=== PATIENT | male | born 1955 | race Caucasian/White ===

== ENCOUNTER 2020-10-25 08:16 | Inpatient (IN) ==
[2020-10-25] MEDS ORDERED: Lidocaine -MPF 4% 5 ML AMPUL ONE (08:32)
[2020-10-25] MEDS ORDERED: CeFAZolin Syr 2,000MG/20 ML 2,000 MG/20 ML SYRINGE IVPB ONE (08:32)
[2020-10-25] MEDS ORDERED: *HR* Propofol 200 MG/20 ML VIAL IVP ONE (08:40)
[2020-10-25] MEDS ORDERED: *HR* Midazolam HCl 2 MG/2 ML VIAL ONE (08:40)
[2020-10-25] MEDS ORDERED: *HR* FentaNYL (PF) 100 MCG/2 ML VIAL ONE (08:40)
[2020-10-25] MEDS ORDERED: *HR* Magnesium Sulfate 1 GM/2 ML VIAL ONE (08:41)
[2020-10-25] MEDS ORDERED: Lidocaine -MPF 2% 2 ML VIAL ONE (08:42)
[2020-10-25] MEDS ORDERED: Ondansetron 4 MG/2 ML VIAL ONE (08:42)
[2020-10-25] MEDS ORDERED: *HR* Rocuronium Bromide 50 MG/5 ML VIAL ONE ×3 (08:42→13:10)
[2020-10-25] MEDS ORDERED: Ringers Solution, Lactated 1,000 ML IVC SCH ×2 (08:45→09:00)
[2020-10-25] MEDS ORDERED: *HR* OxyCODONE Immed Rel 5 MG TABLET PO PRN (08:56)
[2020-10-25] MEDS ORDERED: Ondansetron 4 MG/2 ML VIAL IVP PRN ×2 (08:56→14:24)
[2020-10-25] MEDS ORDERED: *HR* FentaNYL (PF) 100 MCG/2 ML VIAL IVP PRN (08:56)
[2020-10-25] MEDS ORDERED: Acetaminophen IV 1,000 MG/100 ML BAG IVPB ONE ×2 (09:05→10:37)
[2020-10-25] MEDS ORDERED: *HR* HYDROMORPHONE 2 MG/ML VIAL ONE (11:13)
[2020-10-25] MEDS ORDERED: D5% in Water 1,000 ML IVC PRN (14:24)
[2020-10-25] MEDS ORDERED: *HR* Dextrose 50 % in Water (Vial) 50 ML VIAL IVP PRN (14:24)
[2020-10-25] MEDS ORDERED: Dextrose Gel 15 GM/37.5 ML TUBE PO PRN ×2 (14:24)
[2020-10-25] MEDS: *HR* HYDROcodone/Acet 5/325 mg TABLET PO PRN (14:58)
[2020-10-25] MEDS: Gabapentin 300 MG CAPSULE PO SCH ×2 (14:58→21:36)
[2020-10-25] MEDS: *HR* Heparin 5,000 UNIT/ML VIAL SQ SCH ×2 (14:59→21:36)
[2020-10-25] MEDS: 0.9 % Sodium Chloride 1,000 ML IVC SCH (14:59)
[2020-10-25] MEDS: Ipratropium/Albuterol Neb 3 ML IH SCH ×3 (15:45→23:25)
[2020-10-25] MEDS: *HR* Metformin 500 MG TABLET PO SCH (16:57)
[2020-10-25] MEDS: Ketorolac 15 MG/ML VIAL IVP SCH (16:57)
[2020-10-25] MEDS: Insulin LISPRO 300 UNITS/3 ML VIAL SUBQ SCH ×2 (17:00→19:52)
[2020-10-25] MEDS: Famotidine 20 MG TABLET PO SCH (21:36)
[2020-10-25] MEDS: Sennosides/Docusate Sodium TABLET PO SCH (21:36)
[2020-10-26] MEDS: Ketorolac 15 MG/ML VIAL IVP SCH ×5 (00:15→23:22)
[2020-10-26] MEDS: Ipratropium/Albuterol Neb 3 ML IH SCH ×6 (03:45→23:15)
[2020-10-26] MEDS: 0.9 % Sodium Chloride 1,000 ML IVC SCH (04:00)
[2020-10-26] MEDS: *HR* Heparin 5,000 UNIT/ML VIAL SQ SCH ×3 (05:53→20:13)
[2020-10-26 06:06] LABS: Hematocrit 37.5 % (37.5-50.1); Hemoglobin 12.5 g/dL (12.9-16.9); Mean Corpuscular HGB Conc 33.3 g/dL (31.6-35.5); Mean Corpuscular Hemoglobin 28.9 pg (28.0-33.3); Mean Corpuscular Volume 86.8 fL (83.0-100.0); Mean Platelet Volume 9.4 fL (9.4-12.4); Platelet Count 210 K/mcL (140-400); Red Blood Count 4.32 M/mcL (4.19-5.50); Red Cell Distribution Width 13.5 % (11.5-14.5); White Blood Count 11.8 K/mcL (4.3-11.1)
[2020-10-26 06:51] LABS: % Iron Saturation 11 % (20-55); BUN/Creatinine Ratio 18 (6-26); Blood Urea Nitrogen 19 mg/dL (8-23); Calcium 8.3 mg/dL (8.6-10.3); Carbon Dioxide 21 mEq/L (23-29); Chloride 105 mEq/L (98-107); Glucose 138 mg/dL (70-105); Iron 33 mcg/dL (65-175); Magnesium 2.4 mg/dL (1.6-2.6); Osmolality,Calculated 282 (280-300); Potassium 4.3 mEq/L (3.5-5.1); Sodium 134 mEq/L (136-145); Transferrin 217 mg/dL (203-362); eGFR For African Americans > 60 (> 60); eGFR For Non-African Americans > 60 (> 60)
[2020-10-26] MEDS: Insulin LISPRO 300 UNITS/3 ML VIAL SUBQ SCH ×4 (07:27→20:04)
[2020-10-26] MEDS: Sennosides/Docusate Sodium TABLET PO SCH ×2 (07:46→20:12)
[2020-10-26] MEDS: hydroCHLOROthiazide 25 MG TABLET PO SCH (07:46)
[2020-10-26] MEDS: lisinopriL 10 MG TABLET PO SCH (07:46)
[2020-10-26] MEDS: Gabapentin 300 MG CAPSULE PO SCH ×3 (07:46→20:12)
[2020-10-26] MEDS: DilTIAZem CD (24hr) 120 MG CAP.ER.24H PO SCH (07:46)
[2020-10-26] MEDS: Aspirin Enteric Coated 81 MG Tablet PO SCH (07:47)
[2020-10-26] MEDS: Famotidine 20 MG TABLET PO SCH ×2 (07:47→20:12)
[2020-10-26] MEDS: *HR* HYDROcodone/Acet 5/325 mg TABLET PO PRN (10:18)
[2020-10-26] MEDS: *HR* Metformin 500 MG TABLET PO SCH (17:45)
[2020-10-27] MEDS: Ipratropium/Albuterol Neb 3 ML IH SCH ×5 (03:24→20:03)
[2020-10-27] MEDS: *HR* Heparin 5,000 UNIT/ML VIAL SQ SCH ×3 (06:21→21:05)
[2020-10-27] MEDS: Ketorolac 15 MG/ML VIAL IVP SCH ×3 (06:21→17:22)
[2020-10-27] MEDS: Insulin LISPRO 300 UNITS/3 ML VIAL SUBQ SCH ×4 (07:15→20:46)
[2020-10-27] MEDS: Sennosides/Docusate Sodium TABLET PO SCH ×2 (08:33→21:05)
[2020-10-27] MEDS: Famotidine 20 MG TABLET PO SCH ×2 (08:33→21:05)
[2020-10-27] MEDS: DilTIAZem CD (24hr) 120 MG CAP.ER.24H PO SCH (08:33)
[2020-10-27] MEDS: Aspirin Enteric Coated 81 MG Tablet PO SCH (08:33)
[2020-10-27] MEDS: Gabapentin 300 MG CAPSULE PO SCH ×3 (08:34→21:06)
[2020-10-27] MEDS: hydroCHLOROthiazide 25 MG TABLET PO SCH (08:34)
[2020-10-27] MEDS: lisinopriL 10 MG TABLET PO SCH (08:34)
[2020-10-27] MEDS: *HR* Metformin 500 MG TABLET PO SCH (17:22)
[2020-10-28] MEDS: Ipratropium/Albuterol Neb 3 ML IH SCH ×7 (00:01→23:20)
[2020-10-28] MEDS: Ketorolac 15 MG/ML VIAL IVP SCH ×5 (00:28→23:57)
[2020-10-28 01:55] LABS: Hematocrit 30.9 % (37.5-50.1); Mean Corpuscular HGB Conc 33.3 g/dL (31.6-35.5); Mean Corpuscular Hemoglobin 29.2 pg (28.0-33.3); Mean Corpuscular Volume 87.5 fL (83.0-100.0); Mean Platelet Volume 9.6 fL (9.4-12.4); Platelet Count 175 K/mcL (140-400); Red Blood Count 3.53 M/mcL (4.19-5.50); Red Cell Distribution Width 13.9 % (11.5-14.5); White Blood Count 9.4 K/mcL (4.3-11.1)
[2020-10-28 01:58] LABS: Hemoglobin 10.3 g/dL (12.9-16.9)
[2020-10-28 02:06] LABS: BUN/Creatinine Ratio 17 (6-26); Blood Urea Nitrogen 18 mg/dL (8-23); Calcium 8.6 mg/dL (8.6-10.3); Carbon Dioxide 29 mEq/L (23-29); Chloride 104 mEq/L (98-107); Glucose 147 mg/dL (70-105); Magnesium 2.9 mg/dL (1.6-2.6); Osmolality,Calculated 289 (280-300); Potassium 4.1 mEq/L (3.5-5.1); Sodium 137 mEq/L (136-145); eGFR For African Americans > 60 (> 60); eGFR For Non-African Americans > 60 (> 60)
[2020-10-28] MEDS: *HR* Heparin 5,000 UNIT/ML VIAL SQ SCH ×3 (04:56→20:21)
[2020-10-28] MEDS: Insulin LISPRO 300 UNITS/3 ML VIAL SUBQ SCH ×4 (08:28→20:07)
[2020-10-28] MEDS: Famotidine 20 MG TABLET PO SCH ×2 (08:44→20:20)
[2020-10-28] MEDS: Aspirin Enteric Coated 81 MG Tablet PO SCH (08:44)
[2020-10-28] MEDS: hydroCHLOROthiazide 25 MG TABLET PO SCH (08:44)
[2020-10-28] MEDS: lisinopriL 10 MG TABLET PO SCH (08:44)
[2020-10-28] MEDS: Gabapentin 300 MG CAPSULE PO SCH ×3 (08:45→20:21)
[2020-10-28] MEDS: DilTIAZem CD (24hr) 120 MG CAP.ER.24H PO SCH (08:45)
[2020-10-28] MEDS: Sennosides/Docusate Sodium TABLET PO SCH ×2 (08:45→20:21)
[2020-10-28] MEDS: *HR* HYDROcodone/Acet 5/325 mg TABLET PO PRN (10:57)
[2020-10-28] MEDS: *HR* Metformin 500 MG TABLET PO SCH (17:15)
[2020-10-29] MEDS: Ipratropium/Albuterol Neb 3 ML IH SCH ×2 (04:07→07:16)
[2020-10-29] MEDS: *HR* Heparin 5,000 UNIT/ML VIAL SQ SCH (05:37)
[2020-10-29] MEDS: Ketorolac 15 MG/ML VIAL IVP SCH (05:38)
[2020-10-29 07:42] VITALS: BP 132/70
[2020-10-29] MEDS: DilTIAZem CD (24hr) 120 MG CAP.ER.24H PO SCH (08:58)
[2020-10-29] MEDS: hydroCHLOROthiazide 25 MG TABLET PO SCH (08:58)
[2020-10-29] MEDS: Aspirin Enteric Coated 81 MG Tablet PO SCH (08:58)
[2020-10-29] MEDS: Famotidine 20 MG TABLET PO SCH (08:58)
[2020-10-29] MEDS: Insulin LISPRO 300 UNITS/3 ML VIAL SUBQ SCH (08:59)
[2020-10-29] MEDS: Gabapentin 300 MG CAPSULE PO SCH (08:59)
[2020-10-29] MEDS: lisinopriL 10 MG TABLET PO SCH (08:59)
[2020-10-29] MEDS: Sennosides/Docusate Sodium TABLET PO SCH (08:59)
== END 2020-10-29 09:34 | disposition home or self-care (01) | DRG 164 ==
LOC: SAMDAY 08:16 → 2NNU 14:17 → SAMDAY 10-29 09:34 → 2NNU 11-01 09:54
PROVIDERS: ADMIT Thoracic Surgery (Cardiothoracic Vascular Surgery); ATTEND Thoracic Surgery (Cardiothoracic Vascular Surgery)

== ENCOUNTER 2020-11-01 20:22 | Inpatient (IN) ==
[2020-11-01] MEDS ORDERED: Isovue-370 500 ML BOTTLE IVP ONE (22:01)
[2020-11-01 22:14] LABS: Basophils # 0.1 K/mcL (0.0-0.2); Basophils % 0.4 %; Eosinophils # 0.5 K/mcL (0.0-0.6); Eosinophils % 3.3 %; Hematocrit 37.8 % (37.5-50.1); Immature Granulocytes % 1.9 % (0-4); Lymphocytes # 2.1 K/mcL (0.6-4.6); Lymphocytes % 13.6 %; Mean Corpuscular Hemoglobin 28.6 pg (28.0-33.3); Mean Corpuscular Volume 89.4 fL (83.0-100.0); Mean Platelet Volume 9.7 fL (9.4-12.4); Monocytes # 1.5 K/mcL (0.0-1.3); Monocytes % 9.3 %; Platelet Count 319 K/mcL (140-400); Red Blood Count 4.23 M/mcL (4.19-5.50); Red Cell Distribution Width 14.2 % (11.5-14.5); Segmented Neutrophils % 71.5 %
[2020-11-01 22:15] LABS: Hemoglobin 12.1 g/dL (12.9-16.9); Neutrophils # 11.2 K/mcL (1.6-8.9); White Blood Count 15.6 K/mcL (4.3-11.1)
[2020-11-01 22:38] LABS: Alanine Aminotransferase 55 Units/L (7-52); Albumin/Globulin Ratio 1.3 (1.1-2.2); Alkaline Phosphatase 85 Units/L (34-104); Aspartate Amino Transferase 38 Units/L (13-39); BUN/Creatinine Ratio 22 (6-26); Bilirubin,Direct 0.1 mg/dL (0.0-0.2); Bilirubin,Indirect 0.5 mg/dL (0.0-1.0); Bilirubin,Total 0.6 mg/dL (0.3-1.0); Blood Urea Nitrogen 24 mg/dL (8-23); Calcium 9.3 mg/dL (8.6-10.3); Carbon Dioxide 26 mEq/L (23-29); Chloride 98 mEq/L (98-107); Globulin 3.2 g/dL (2.4-3.5); Glucose 116 mg/dL (70-105); Osmolality,Calculated 285 (280-300); Potassium 4.6 mEq/L (3.5-5.1); Sodium 135 mEq/L (136-145); Total Protein 7.2 g/dL (6.4-8.9); eGFR For African Americans > 60 (> 60); eGFR For Non-African Americans > 60 (> 60)
[2020-11-02] MEDS ORDERED: Vancomycin 1,500 MG/265 ML IV.SOLN IVPB ONE (01:00)
[2020-11-02] MEDS ORDERED: Piperacillin/Tazobactam 3.375 GM in 0.9 % Sodium Chloride Mini Bag 100 ML IVPB STA (01:01)
[2020-11-02] MEDS ORDERED: Piperacillin/Tazobactam 3.375 GM in 0.9 % Sodium Chloride Mini Bag 100 ML IVPB ONE (01:15)
[2020-11-02] MEDS ORDERED: *HR* HYDROcodone/Acet 5/325 mg TABLET PO ONE (01:58)
[2020-11-02] MEDS ORDERED: Naloxone 0.4 MG/ML INJ IVP PRN (04:32)
[2020-11-02] MEDS ORDERED: Ondansetron 4 MG/2 ML VIAL IVP PRN (04:32)
[2020-11-02] MEDS ORDERED: 0.9 % Sodium Chloride 1,000 ML IVC SCH (04:45)
[2020-11-02] MEDS ORDERED: *HR* Dextrose 50 % in Water (Vial) 50 ML VIAL IVP PRN (06:44)
[2020-11-02] MEDS ORDERED: D5% in Water 1,000 ML IVC PRN (06:44)
[2020-11-02] MEDS ORDERED: Dextrose Gel 15 GM/37.5 ML TUBE PO PRN ×2 (06:44)
[2020-11-02 07:53] LABS: Lipase 26 Units/L (11-82)
[2020-11-02] MEDS: Insulin LISPRO 300 UNITS/3 ML VIAL SUBQ SCH ×3 (08:00→17:07)
[2020-11-02] MEDS ORDERED: Piperacillin/Tazobactam 3.375 GM in 0.9 % Sodium Chloride Mini Bag 100 ML IVPB SCH (08:00)
[2020-11-02 08:13] LABS: Troponin I < 0.03 ng/mL (< 0.04)
[2020-11-02] MEDS: hydroCHLOROthiazide 25 MG TABLET PO SCH (10:43)
[2020-11-02] MEDS: Aspirin Enteric Coated 81 MG Tablet PO SCH (10:43)
[2020-11-02] MEDS: DilTIAZem CD (24hr) 120 MG CAP.ER.24H PO SCH (10:43)
[2020-11-02] MEDS: *HR* HYDROcodone/Acet 5/325 mg TABLET PO PRN ×2 (10:43→14:42)
[2020-11-02] MEDS: lisinopriL 10 MG TABLET PO SCH (10:43)
[2020-11-02] MEDS: Gabapentin 300 MG CAPSULE PO SCH ×3 (10:43→20:12)
[2020-11-02] MEDS: Ampicillin/Sulbactam 1,500 MG in 0.9 % Sodium Chloride Mini Bag 100 ML IVPB SCH ×3 (13:10→23:51)
[2020-11-02] MEDS: *HR* Metformin 500 MG TABLET PO SCH ×2 (13:11→17:02)
[2020-11-02] MEDS ORDERED: Vancomycin 1,500 MG/265 ML IV.SOLN IVPB SCH (14:00)
[2020-11-03 04:19] LABS: Basophils % 0.3 %; Eosinophils # 0.4 K/mcL (0.0-0.6); Eosinophils % 3.2 %; Hematocrit 36.7 % (37.5-50.1); Immature Granulocytes % 1.1 % (0-4); Lymphocytes # 1.7 K/mcL (0.6-4.6); Lymphocytes % 14.3 %; Mean Corpuscular HGB Conc 32.7 g/dL (31.6-35.5); Mean Corpuscular Hemoglobin 29.2 pg (28.0-33.3); Mean Corpuscular Volume 89.3 fL (83.0-100.0); Mean Platelet Volume 9.4 fL (9.4-12.4); Monocytes # 1.3 K/mcL (0.0-1.3); Monocytes % 10.9 %; Neutrophils # 8.5 K/mcL (1.6-8.9); Platelet Count 274 K/mcL (140-400); Red Blood Count 4.11 M/mcL (4.19-5.50); Red Cell Distribution Width 14.3 % (11.5-14.5); Segmented Neutrophils % 70.2 %; White Blood Count 12.1 K/mcL (4.3-11.1)
[2020-11-03 04:37] LABS: BUN/Creatinine Ratio 21 (6-26); Blood Urea Nitrogen 21 mg/dL (8-23); Calcium 9.3 mg/dL (8.6-10.3); Carbon Dioxide 27 mEq/L (23-29); Chloride 99 mEq/L (98-107); Glucose 118 mg/dL (70-105); Osmolality,Calculated 286 (280-300); Potassium 4.6 mEq/L (3.5-5.1); Sodium 136 mEq/L (136-145); eGFR For African Americans > 60 (> 60); eGFR For Non-African Americans > 60 (> 60)
[2020-11-03] MEDS: Ampicillin/Sulbactam 1,500 MG in 0.9 % Sodium Chloride Mini Bag 100 ML IVPB SCH ×4 (06:28→23:47)
[2020-11-03] MEDS: Insulin LISPRO 300 UNITS/3 ML VIAL SUBQ SCH ×3 (07:35→16:52)
[2020-11-03] MEDS: lisinopriL 10 MG TABLET PO SCH (07:40)
[2020-11-03] MEDS: DilTIAZem CD (24hr) 120 MG CAP.ER.24H PO SCH (07:40)
[2020-11-03] MEDS: Gabapentin 300 MG CAPSULE PO SCH ×3 (07:40→20:01)
[2020-11-03] MEDS: Aspirin Enteric Coated 81 MG Tablet PO SCH (07:40)
[2020-11-03] MEDS: hydroCHLOROthiazide 25 MG TABLET PO SCH (07:40)
[2020-11-03] MEDS: *HR* Metformin 500 MG TABLET PO SCH (17:10)
[2020-11-03] MEDS: *HR* HYDROcodone/Acet 5/325 mg TABLET PO PRN (20:06)
[2020-11-04] MEDS: Ampicillin/Sulbactam 1,500 MG in 0.9 % Sodium Chloride Mini Bag 100 ML IVPB SCH ×3 (06:15→17:52)
[2020-11-04] MEDS: DilTIAZem CD (24hr) 120 MG CAP.ER.24H PO SCH (08:45)
[2020-11-04] MEDS: lisinopriL 10 MG TABLET PO SCH (08:45)
[2020-11-04] MEDS: Gabapentin 300 MG CAPSULE PO SCH ×3 (08:45→20:38)
[2020-11-04] MEDS: Aspirin Enteric Coated 81 MG Tablet PO SCH (08:45)
[2020-11-04] MEDS: hydroCHLOROthiazide 25 MG TABLET PO SCH (08:45)
[2020-11-04] MEDS: Insulin LISPRO 300 UNITS/3 ML VIAL SUBQ SCH ×3 (08:53→16:43)
[2020-11-04] MEDS: Mag Hydrox/Al Hydrox/Simeth 30 ML UDC PO PRN (09:10)
[2020-11-04 11:47] VITALS: O2SAT 100
[2020-11-04] MEDS: *HR* Metformin 500 MG TABLET PO SCH (17:52)
[2020-11-04] MEDS: *HR* HYDROcodone/Acet 5/325 mg TABLET PO PRN (20:37)
[2020-11-05] MEDS: Ampicillin/Sulbactam 1,500 MG in 0.9 % Sodium Chloride Mini Bag 100 ML IVPB SCH ×2 (00:03→05:39)
[2020-11-05 03:43] VITALS: BP 135/77
[2020-11-05] MEDS: Mag Hydrox/Al Hydrox/Simeth 30 ML UDC PO PRN (05:39)
[2020-11-05 07:42] VITALS: PULSE 62; TEMP 98.2
[2020-11-05] MEDS: hydroCHLOROthiazide 25 MG TABLET PO SCH (09:21)
[2020-11-05] MEDS: Gabapentin 300 MG CAPSULE PO SCH (09:21)
[2020-11-05] MEDS: DilTIAZem CD (24hr) 120 MG CAP.ER.24H PO SCH (09:21)
[2020-11-05] MEDS: Aspirin Enteric Coated 81 MG Tablet PO SCH (09:22)
[2020-11-05] MEDS: lisinopriL 10 MG TABLET PO SCH (09:22)
[2020-11-05] MEDS: Insulin LISPRO 300 UNITS/3 ML VIAL SUBQ SCH (09:24)
== END 2020-11-05 11:44 | disposition home or self-care (01) | DRG 200 ==
LOC: 2NNU 20:22 → EMEROOARM 20:22 → SUATTDRO 11-02 02:42 → 2NNU 11-02 03:18 → SUATTDRO 11-02 10:00 → 2NNU 11-03 20:43
PROVIDERS: ADMIT Internal Medicine; ATTEND Thoracic Surgery (Cardiothoracic Vascular Surgery)

== ENCOUNTER 2020-11-17 10:16 | Observation (INO) ==
[2020-11-17] MEDS ORDERED: 0.9 % Sodium Chloride 1,000 ML IV ONE (11:09)
[2020-11-17] MEDS ORDERED: Ondansetron 4 MG/2 ML VIAL IVP ONE (11:09)
[2020-11-17] MEDS ORDERED: Morphine Sulfate 2 MG/ML SYRINGE IVP ONE (11:09)
[2020-11-17 11:38] LABS: Basophils # 0.1 K/mcL (0.0-0.2); Basophils % 0.4 %; Eosinophils # 0.3 K/mcL (0.0-0.6); Eosinophils % 2.6 %; Hematocrit 42.3 % (37.5-50.1); Hemoglobin 13.9 g/dL (12.9-16.9); Immature Granulocytes % 0.4 % (0-4); Lymphocytes # 1.2 K/mcL (0.6-4.6); Lymphocytes % 10.6 %; Mean Corpuscular HGB Conc 32.9 g/dL (31.6-35.5); Mean Corpuscular Hemoglobin 28.9 pg (28.0-33.3); Mean Corpuscular Volume 87.9 fL (83.0-100.0); Monocytes % 8.4 %; Neutrophils # 9.1 K/mcL (1.6-8.9); Platelet Count 299 K/mcL (140-400); Red Blood Count 4.81 M/mcL (4.19-5.50); Red Cell Distribution Width 13.8 % (11.5-14.5); Segmented Neutrophils % 77.6 %; White Blood Count 11.7 K/mcL (4.3-11.1)
[2020-11-17 11:47] LABS: Alanine Aminotransferase 24 Units/L (7-52); Albumin 4.6 g/dL (3.5-5.7); Albumin/Globulin Ratio 1.4 (1.1-2.2); Alkaline Phosphatase 109 Units/L (34-104); Aspartate Amino Transferase 22 Units/L (13-39); BUN/Creatinine Ratio 16 (6-26); Bilirubin,Total 0.8 mg/dL (0.3-1.0); Blood Urea Nitrogen 18 mg/dL (8-23); Calcium 9.6 mg/dL (8.6-10.3); Carbon Dioxide 26 mEq/L (23-29); Chloride 100 mEq/L (98-107); Creatine Kinase 116 Units/L (30-223); Globulin 3.3 g/dL (2.4-3.5); Glucose 115 mg/dL (70-105); Lipase 29 Units/L (11-82); Magnesium 2.8 mg/dL (1.6-2.6); Osmolality,Calculated 283 (280-300); Potassium 3.9 mEq/L (3.5-5.1); Sodium 135 mEq/L (136-145); Total Protein 7.9 g/dL (6.4-8.9); eGFR For African Americans > 60 (> 60); eGFR For Non-African Americans > 60 (> 60)
[2020-11-17 11:48] LABS: Troponin I < 0.03 ng/mL (< 0.04)
[2020-11-17 12:01] LABS: Thyroid Stimulating Hormone 22.318 mcIU/mL (0.340-5.600)
[2020-11-17 12:27] LABS: Adenovirus Not Detected (Not Detect); Bordetella Pertussis Not Detected (Not Detect); Chlamydophila pneumoniae Not Detected (Not Detect); Coronavirus 229E Not Detected (Not Detect); Coronavirus HKU1 Not Detected (Not Detect); Coronavirus NL63 Not Detected (Not Detect); Coronavirus OC43 Not Detected (Not Detect); Human Metapneumovirus Not Detected (Not Detect); Human Rhinovirus/Enterovirus Not Detected (Not Detect); Influenza A Subtype 2009 H1 Not Detected (Not Detect); Influenza B Not Detected (Not Detect); Mycoplasma pneumoniae Not Detected (Not Detect); Parainfluenza Virus 1 Not Detected (Not Detect); Parainfluenza Virus 2 Not Detected (Not Detect); Parainfluenza Virus 3 Not Detected (Not Detect); Parainfluenza Virus 4 Not Detected (Not Detect); Respiratory Syncytial Virus Not Detected (Not Detect); SARS-CoV-2 Not Detected (Not Detect)
[2020-11-17 13:33] LABS: Bilirubin,Urine Negative (Negative); Blood,Urine Negative (Negative); Clarity,Urine Clear (Clear); Color,Urine Light-Yellow (Yellow); Glucose,Urine (UA) Normal (Normal); Ketones,Urine 10 mg/dL (Negative); Leukocyte Esterase,Urine Negative (Negative); Nitrite,Urine Negative (Negative); Protein,Urine Negative (Neg-Trace); Specific Gravity,Urine 1.027 (1.010-1.025); Urobilinogen,Urine Normal (Normal)
[2020-11-17] MEDS ORDERED: Cefepime HCl 1,000 MG in Water for inj. (sterile) 10 ML IVP ONE (15:32)
[2020-11-17] MEDS ORDERED: Vancomycin 1,500 MG/265 ML IV.SOLN IVPB ONE (15:33)
[2020-11-17] MEDS ORDERED: Isovue-370 500 ML BOTTLE IVP ONE (15:58)
[2020-11-17] MEDS ORDERED: Naloxone 0.4 MG/ML INJ IVP PRN (16:49)
[2020-11-17] MEDS ORDERED: Dextrose Gel 15 GM/37.5 ML TUBE PO PRN ×2 (16:59)
[2020-11-17] MEDS ORDERED: *HR* Dextrose 50 % in Water (Vial) 50 ML VIAL IVP PRN (16:59)
[2020-11-17] MEDS ORDERED: D5% in Water 1,000 ML IVC PRN (16:59)
[2020-11-17 17:49] LABS: Triiodothyronine (T3) Free 2.59 pg/mL (2.50-3.90)
[2020-11-17] MEDS: predniSONE 20 MG TABLET PO SCH (18:46)
[2020-11-17] MEDS: Sennosides/Docusate Sodium TABLET PO SCH (20:59)
[2020-11-17] MEDS: Gabapentin 300 MG CAPSULE PO SCH (20:59)
[2020-11-18 01:51] LABS: Basophils % 0.2 %; Eosinophils % 0.2 %; Hematocrit 39.5 % (37.5-50.1); Hemoglobin 13.4 g/dL (12.9-16.9); Immature Granulocytes % 0.4 % (0-4); Lymphocytes # 0.8 K/mcL (0.6-4.6); Lymphocytes % 8.2 %; Mean Corpuscular HGB Conc 33.9 g/dL (31.6-35.5); Mean Corpuscular Hemoglobin 29.6 pg (28.0-33.3); Mean Corpuscular Volume 87.4 fL (83.0-100.0); Mean Platelet Volume 9.1 fL (9.4-12.4); Monocytes # 0.3 K/mcL (0.0-1.3); Monocytes % 2.5 %; Neutrophils # 8.9 K/mcL (1.6-8.9); Platelet Count 259 K/mcL (140-400); Red Blood Count 4.52 M/mcL (4.19-5.50); Red Cell Distribution Width 13.5 % (11.5-14.5); Segmented Neutrophils % 88.5 %
[2020-11-18 02:09] LABS: BUN/Creatinine Ratio 17 (6-26); Blood Urea Nitrogen 17 mg/dL (8-23); Calcium 9.4 mg/dL (8.6-10.3); Carbon Dioxide 25 mEq/L (23-29); Chloride 100 mEq/L (98-107); Glucose 132 mg/dL (70-105); Osmolality,Calculated 285 (280-300); Potassium 4.1 mEq/L (3.5-5.1); Sodium 136 mEq/L (136-145); eGFR For African Americans > 60 (> 60); eGFR For Non-African Americans > 60 (> 60)
[2020-11-18 04:06] VITALS: O2SAT 97
[2020-11-18] MEDS ORDERED: Insulin LISPRO 300 UNITS/3 ML VIAL SUBQ SCH (07:30)
[2020-11-18 08:17] VITALS: BP 130/74; PULSE 68; TEMP 98.9
[2020-11-18] MEDS: Gabapentin 300 MG CAPSULE PO SCH (09:09)
[2020-11-18] MEDS: predniSONE 20 MG TABLET PO SCH (09:09)
[2020-11-18] MEDS: Sennosides/Docusate Sodium TABLET PO SCH (09:09)
== END 2020-11-18 10:53 | disposition home or self-care (01) ==
LOC: EMEROOARM 10:16 → 2ANU 10:16
PROVIDERS: ADMIT Pharmacist; ATTEND Pharmacist

== ENCOUNTER 2020-11-22 14:55 | Inpatient (IN) ==
[2020-11-22] MEDS ORDERED: Ondansetron 4 MG/2 ML VIAL IVP ONE (16:51)
[2020-11-22] MEDS ORDERED: 0.9 % Sodium Chloride 1,000 ML IVC ONE (16:51)
[2020-11-22 16:54] LABS: Basophils # 0.1 K/mcL (0.0-0.2); Basophils % 0.5 %; Eosinophils # 0.1 K/mcL (0.0-0.6); Eosinophils % 1.1 %; Hematocrit 40.3 % (37.5-50.1); Immature Granulocytes % 0.6 % (0-4); Lymphocytes # 1.6 K/mcL (0.6-4.6); Lymphocytes % 13.8 %; Mean Corpuscular HGB Conc 32.3 g/dL (31.6-35.5); Mean Corpuscular Hemoglobin 28.4 pg (28.0-33.3); Mean Corpuscular Volume 88.2 fL (83.0-100.0); Mean Platelet Volume 9.2 fL (9.4-12.4); Monocytes # 1.1 K/mcL (0.0-1.3); Monocytes % 9.4 %; Neutrophils # 8.4 K/mcL (1.6-8.9); Platelet Count 277 K/mcL (140-400); Red Blood Count 4.57 M/mcL (4.19-5.50); Red Cell Distribution Width 13.8 % (11.5-14.5); Segmented Neutrophils % 74.6 %; White Blood Count 11.3 K/mcL (4.3-11.1)
[2020-11-22 17:29] LABS: Alanine Aminotransferase 20 Units/L (7-52); Albumin 4.5 g/dL (3.5-5.7); Albumin/Globulin Ratio 1.4 (1.1-2.2); Alkaline Phosphatase 82 Units/L (34-104); Amylase 45 Units/L (29-103); Aspartate Amino Transferase 20 Units/L (13-39); BUN/Creatinine Ratio 19 (6-26); Bilirubin,Direct 0.2 mg/dL (0.0-0.2); Bilirubin,Total 1.2 mg/dL (0.3-1.0); Blood Urea Nitrogen 19 mg/dL (8-23); Calcium 9.7 mg/dL (8.6-10.3); Carbon Dioxide 23 mEq/L (23-29); Chloride 99 mEq/L (98-107); Globulin 3.2 g/dL (2.4-3.5); Glucose 98 mg/dL (70-105); Lipase 37 Units/L (11-82); Osmolality,Calculated 280 (280-300); Potassium 4.1 mEq/L (3.5-5.1); Sodium 134 mEq/L (136-145); Total Protein 7.7 g/dL (6.4-8.9); Troponin I < 0.03 ng/mL (< 0.04); eGFR For African Americans > 60 (> 60); eGFR For Non-African Americans > 60 (> 60)
[2020-11-22] MEDS ORDERED: Acetaminophen 325 MG TABLET PO PRN (20:39)
[2020-11-22] MEDS ORDERED: *HR* HYDROcodone/Acet 5/325 mg TABLET PO PRN (20:39)
[2020-11-22] MEDS ORDERED: Naloxone 0.4 MG/ML INJ IVP PRN (20:39)
[2020-11-22] MEDS ORDERED: Melatonin 3 MG TABLET PO PRN (20:39)
[2020-11-22] MEDS ORDERED: *HR* OxyCODONE Immed Rel 5 MG TABLET PO PRN (20:39)
[2020-11-22] MEDS ORDERED: *HR* Promethazine 25 MG/ML VIAL IM PRN (20:39)
[2020-11-22] MEDS ORDERED: Ondansetron 4 MG/2 ML VIAL IVP PRN (20:39)
[2020-11-22] MEDS ORDERED: Sennosides/Docusate Sodium TABLET PO PRN (20:43)
[2020-11-22] MEDS: Gabapentin 300 MG CAPSULE PO SCH (22:59)
[2020-11-23 05:24] LABS: Basophils # 0.1 K/mcL (0.0-0.2); Basophils % 0.6 %; Eosinophils # 0.2 K/mcL (0.0-0.6); Eosinophils % 2.2 %; Hematocrit 35.3 % (37.5-50.1); Hemoglobin 11.3 g/dL (12.9-16.9); Immature Granulocytes % 0.5 % (0-4); Lymphocytes # 1.4 K/mcL (0.6-4.6); Lymphocytes % 16.3 %; Mean Corpuscular Hemoglobin 28.7 pg (28.0-33.3); Mean Corpuscular Volume 89.6 fL (83.0-100.0); Mean Platelet Volume 9.2 fL (9.4-12.4); Monocytes # 0.9 K/mcL (0.0-1.3); Monocytes % 10.9 %; Neutrophils # 5.8 K/mcL (1.6-8.9); Platelet Count 223 K/mcL (140-400); Red Blood Count 3.94 M/mcL (4.19-5.50); Red Cell Distribution Width 13.7 % (11.5-14.5); Segmented Neutrophils % 69.5 %; White Blood Count 8.3 K/mcL (4.3-11.1)
[2020-11-23 05:33] LABS: INR 1.2; Prothrombin Time 13.8 Seconds (9.4-12.1)
[2020-11-23 05:43] LABS: BUN/Creatinine Ratio 20 (6-26); Blood Urea Nitrogen 20 mg/dL (8-23); Calcium 8.9 mg/dL (8.6-10.3); Carbon Dioxide 23 mEq/L (23-29); Chloride 104 mEq/L (98-107); Glucose 101 mg/dL (70-105); Magnesium 2.2 mg/dL (1.6-2.6); Osmolality,Calculated 281 (280-300); Sodium 134 mEq/L (136-145); eGFR For African Americans > 60 (> 60); eGFR For Non-African Americans > 60 (> 60)
[2020-11-23] MEDS ORDERED: *HR* HYDROmorphone 2 MG/ML SYRINGE IVP ONE (09:03)
[2020-11-23] MEDS ORDERED: *HR* HYDROmorphone (PF) 1 MG/ML SYRINGE IVP ONE (09:15)
[2020-11-23] MEDS: DilTIAZem CD (24hr) 120 MG CAP.ER.24H PO SCH (09:51)
[2020-11-23] MEDS: Gabapentin 300 MG CAPSULE PO SCH (09:51)
[2020-11-23 16:24] LABS: Bilirubin,Urine Negative (Negative); Blood,Urine Negative (Negative); Clarity,Urine Clear (Clear); Color,Urine Yellow (Yellow); Glucose,Urine (UA) Normal (Normal); Ketones,Urine Negative (Negative); Leukocyte Esterase,Urine Negative (Negative); Nitrite,Urine Negative (Negative); PH,Urine 5.5 pH Units (5.0-8.0); Protein,Urine Trace mg/dL (Neg-Trace); Specific Gravity,Urine > 1.030 (1.010-1.025); Urobilinogen,Urine Normal (Normal)
[2020-11-23] MEDS: polyethylene glycoL 3350 17 GM POWD.PACK PO SCH (17:39)
[2020-11-24 02:29] LABS: Hematocrit 34.3 % (37.5-50.1); Hemoglobin 11.5 g/dL (12.9-16.9); Mean Corpuscular HGB Conc 33.5 g/dL (31.6-35.5); Mean Corpuscular Hemoglobin 29.3 pg (28.0-33.3); Mean Corpuscular Volume 87.5 fL (83.0-100.0); Mean Platelet Volume 9.4 fL (9.4-12.4); Platelet Count 241 K/mcL (140-400); Red Blood Count 3.92 M/mcL (4.19-5.50); Red Cell Distribution Width 13.6 % (11.5-14.5); White Blood Count 9.8 K/mcL (4.3-11.1)
[2020-11-24 02:48] LABS: BUN/Creatinine Ratio 22 (6-26); Blood Urea Nitrogen 21 mg/dL (8-23); Calcium 8.9 mg/dL (8.6-10.3); Carbon Dioxide 25 mEq/L (23-29); Chloride 103 mEq/L (98-107); Glucose 110 mg/dL (70-105); Osmolality,Calculated 282 (280-300); Potassium 4.1 mEq/L (3.5-5.1); Sodium 134 mEq/L (136-145); eGFR For African Americans > 60 (> 60); eGFR For Non-African Americans > 60 (> 60)
[2020-11-24] MEDS: DilTIAZem CD (24hr) 120 MG CAP.ER.24H PO SCH (07:43)
[2020-11-24] MEDS: polyethylene glycoL 3350 17 GM POWD.PACK PO SCH (07:43)
[2020-11-24] MEDS ORDERED: Sennosides/Docusate Sodium TABLET PO PRN (12:47)
[2020-11-25 05:15] LABS: Hematocrit 34.2 % (37.5-50.1); Mean Corpuscular HGB Conc 32.2 g/dL (31.6-35.5); Mean Corpuscular Hemoglobin 28.8 pg (28.0-33.3); Mean Corpuscular Volume 89.5 fL (83.0-100.0); Mean Platelet Volume 9.9 fL (9.4-12.4); Platelet Count 229 K/mcL (140-400); Red Blood Count 3.82 M/mcL (4.19-5.50); Red Cell Distribution Width 13.7 % (11.5-14.5); White Blood Count 9.8 K/mcL (4.3-11.1)
[2020-11-25 05:34] LABS: BUN/Creatinine Ratio 18 (6-26); Blood Urea Nitrogen 17 mg/dL (8-23); Calcium 8.7 mg/dL (8.6-10.3); Carbon Dioxide 26 mEq/L (23-29); Chloride 102 mEq/L (98-107); Glucose 110 mg/dL (70-105); Osmolality,Calculated 280 (280-300); Potassium 3.9 mEq/L (3.5-5.1); Sodium 134 mEq/L (136-145); eGFR For African Americans > 60 (> 60); eGFR For Non-African Americans > 60 (> 60)
[2020-11-25] MEDS: DilTIAZem CD (24hr) 120 MG CAP.ER.24H PO SCH (07:31)
[2020-11-25] MEDS: polyethylene glycoL 3350 17 GM POWD.PACK PO SCH (07:32)
[2020-11-26 06:59] VITALS: TEMP 98.6; O2SAT 97
[2020-11-26] MEDS: DilTIAZem CD (24hr) 120 MG CAP.ER.24H PO SCH (07:36)
[2020-11-26] MEDS: polyethylene glycoL 3350 17 GM POWD.PACK PO SCH (07:36)
[2020-11-26 09:01] VITALS: PULSE 65
[2020-11-26 11:09] VITALS: BP 124/73
== END 2020-11-26 14:54 | disposition home or self-care (01) | DRG 200 ==
LOC: 2NNU 14:55 → EMEROOARM 14:55 → SUATTDRO 20:57 → 2NNU 22:00
PROVIDERS: ADMIT Family Medicine; ATTEND Internal Medicine